=== PATIENT | female | born 1990 | race Caucasian/White ===

== ENCOUNTER 2016-11-26 14:02 | Inpatient (IN) | payer BC, OTHER ==
[~2016-11-26] VITALS: Ht 170.2 cm; Wt 83.9 kg
[2016-11-26 16:00] VITALS: BP 141/79
[2016-11-26] MEDS ORDERED: MIRALAX 17 GM POWD.PACK PO PRN (16:15)
[2016-11-26] MEDS ORDERED: MAGNESIUM HYDROXIDE 30 ML LIQUID UDC PO PRN (16:15)
[2016-11-26] MEDS ORDERED: BUPRENORPHINE HCL 2 MG TAB.SUBL SL PRN (16:15)
[2016-11-26] MEDS ORDERED: MAG HYDROX/AL HYDROX/SIMETH 30 ML LIQUID UDC PO PRN (16:15)
[2016-11-26] MEDS ORDERED: ONDANSETRON ODT 4 MG TAB.RAPDIS SL PRN (16:15)
[2016-11-26] MEDS ORDERED: LOPERAMIDE HCL 2 MG CAPSULE PO PRN (16:15)
[2016-11-26] MEDS ORDERED: diphenhydrAMINE 50 MG CAPSULE PO PRN (16:15)
[2016-11-26] MEDS ORDERED: ONDANSETRON 4 MG/2 ML VIAL IM PRN (16:15)
[2016-11-26] MEDS ORDERED: CLONIDINE HCL 0.1 MG TABLET PO PRN (16:15)
--- NOTE | 2016-11-26 16:30 | NUR ---
ADMISSION NOTE VS: BP: 141/29 HR: 81 O2: 96% RR:16 TEMP: 98.3 PAIN 01/02 HEIGHT: 5'7" WEIGHT: 186 LBS ALLERGIES: SULFA DRUGS, AMOXICILLIN PT IS A 26 YO FEMALE ADMITTED TO [facility] ON 11/26/16 AT 1625. PT IS UNDER CARE OF DR SANFORD FOR HEROIN AND OXYCODONE DEPENDENCE. PT DENIES SI AND HI. PT DENIES BEING HOSPITALIZED IN LAST 30 DAYS. PT DENIES CHEST PAIN AND SOB. UPON ASSESSMENT, SKIN IS INTACT. COWS 8 UPON ADMISSION. AOX4 AND ABLE TO ANSWER QUESTIONS NECESSARY FOR ADMISSION PROCESS. PT IS FULL CODE. VS WNL AND REGULAR DIET. PT DENIES HAVING SEIZURES. PT DENIES PCP. BREATHING IS EVEN AND UNLABORED. SPO2 96%. PT AMBULATES WITH STEADY GAIT. PT STATES BOWEL HABITS ARE NORMAL AND SHE USUALLY GOES EVERY OTHER DAY. PT REPORTS BEING IN AND OUT OF SOBER LIVINGS AND IOPS SINCE OCTOBER 2015. PT CAME FROM IOP. HX OF ANXIETY AND DEPRESSION. PT REFUSES PNA VACCINE. PT SMOKES ABOUT 10 CIGARETTES A DAY. ALL NEEDS HAVE BEEN MET. PT HAS BEEN ORIENTED TO UNIT AND STAFF. ALL SAFETY MEASURES IN PLACE PER HOSPITAL POLICY. BED IN LOWEST POSITION, LOCKED, AND CALL LIGHT WITHIN REACH. WILL CONTINUE TO MONITOR. SUBSTANCE ABUSE: HEROIN:1/2 GRAM PER DAY FOR 3 WEEKS. LAST USED 11/25/16 1/2 GRAM. OXYCODONE: 30 MG PER DAY FOR 1 WEEK. LAST USED 11/23/16 30 MG.
[2016-11-26] MEDS ORDERED: QUET400T PO (17:39)
[2016-11-26] MEDS ORDERED: TRAZ150T75 PO (17:39)
[2016-11-26] MEDS ORDERED: PROP80TA4 PO (17:39)
[2016-11-26] MEDS ORDERED: GABA300S PO (17:39)
[2016-11-26] MEDS ORDERED: VENL150C2 PO (17:39)
[2016-11-26 18:03] LABS: *URINE HCG, QUAL NEGATIVE (NEGATIVE)
[2016-11-26 18:07] LABS: *AMPHETAMINE, URINE NEGATIVE (NEGATIVE); *BARBITURATE, URINE NEGATIVE (NEGATIVE); *CANNABINOID, URINE NEGATIVE (NEGATIVE); *COCCAINE, URINE NEGATIVE (NEGATIVE); *OPIATE, URINE POSITIVE (NEGATIVE); *PHENCYCLIDINE SCREEN,URINE NEGATIVE (NEGATIVE)
[2016-11-26] MEDS: HYDROXYZINE PAMOATE 25 MG CAPSULE PO PRN (18:45)
--- NOTE | 2016-11-26 18:47 | NUR ---
END OF SHIFT PT ADMITTED THIS AFTERNOON FOR HEROIN AND OXYCODONE DEPENDENCE. UDS COLLECTED AND SENT. ENCOURAGED INCREASED FLUIDS. GAVE PT VISTARIL FOR ANXIETY AT 1845. PT CURRENTLY IN ROOM RESTING WITH BED IN LOWEST POSITION AND LOCKED. CALL FELIPE IN REACH. PT DENIES SI AND HI. PT DENIES HX OF SEIZURES. WILL ENDORSE MRSA SWAB TO NIGHT NURSE. WILL PASS REPORT TO NIGHT NURSE.
--- NOTE | 2016-11-26 18:47 | NUR ---
PRN VISTARIL GIVEN FOR ANXIETY. WILL ENDORSE TO NIGHT NURSE TO MONITOR EFFECTIVENESS
[2016-11-26 19:34] LABS: BASOPHILS # (AUTO) 0.1 K/uL (0.0-0.2); BASOPHILS % (AUTO) 0.6 % (0.0-2.0); EOSINOPHILS # (AUTO) 0.1 K/uL (0.0-0.7); EOSINOPHILS % (AUTO) 1.1 % (0.0-7.0); HEMATOCRIT 39.3 % (37.0-47.0); HEMOGLOBIN 13.3 g/dL (12.0-16.0); LYMPHOCYTES # (AUTO) 2.4 K/uL (0.8-4.8); LYMPHOCYTES % (AUTO) 24.8 % (20.5-51.5); MEAN CORPUSCULAR HEMOGLOBIN 27.5 uug (27.0-31.0); MEAN CORPUSCULAR HGB CONC 34 g/dL (32.0-37.0); MEAN CORPUSCULAR VOLUME 81.3 fL (81.0-99.0); MONOCYTES # (AUTO) 0.5 K/uL (0.1-1.30); MONOCYTES % (AUTO) 5.6 % (0.0-11.0); NEUTROPHILS # (AUTO) 6.5 K/uL (1.8-8.9); NEUTROPHILS % (AUTO) 67.9 % (38.5-71.5); PLATELET COUNT (AUTO) 282 K/uL (150-450); RED BLOOD CELL COUNT(AUTO) 4.83 MIL/uL (4.20-5.40); RED CELL DISTRIBUTION WIDTH 13.7 % (11.5-14.5); WHITE BLOOD COUNT (AUTO) 9.6 K/uL (4.0-11.2)
[2016-11-26 19:52] LABS: ALANINE AMINOTRANSFERASE 29 U/L (14-59); ALBUMIN 4.3 g/dL (3.4-5.0); ALKALINE PHOSPHATASE 100 U/L (50-136); ASPARTATE AMINOTRANSFERASE 29 U/L (15-37); BILIRUBIN,TOTAL 0.4 mg/dL (0.2-1.0); CALCIUM 9.6 mg/dL (8.5-10.1); CARBON DIOXIDE 29 mmol/L (21-32); CHLORIDE 103 mmol/L (98-107); CREATININE 0.8 mg/dL (0.6-1.3); GFR 86 mL/min (>60); GLUCOSE 83 mg/dL (74-106); POTASSIUM 3.6 mmol/L (3.5-5.1); SODIUM SERUM 141 mmol/L (136-145); TOTAL PROTEIN, SERUM 8.9 g/dL (6.4-8.2); UREA NITROGEN, BLOOD 8 mg/dL (7-18)
[2016-11-26 19:55] LABS: THYROID STIMULATING HORMONE 0.381 mIU/mL (0.358-3.740)
--- NOTE | 2016-11-26 19:55 | NUR ---
START OF SHIFT Received report from day shift nurse. Pt is in bed watching TV. She is a 26 yo female admitted to the [facility] today for opiate and opioid dependence. She is A&O x4 and ambulatory. Allergies to Sulfa and amoxicillin. She has PMH of anxiety and depression. On admission she reported using heroin 0.5 grams per day for 3 weeks and oxycodone 30mg per day for the past week. She will start a 3 day subutex taper tomorrow. PRN's available for the management of withdrawal symptoms. She reports generalized muscle aches and anxiety. Fall precautions in place. Bed is down with call light in reach.
[2016-11-26 20:00] VITALS: BP 129/87
[2016-11-26 20:08] LABS: HIV-1 p24 ANTIGEN NON REACTIVE (NONREACTIVE); HIV-1/2 ANTIBODY NON REACTIVE (NONREACTIVE)
[2016-11-26 20:11] LABS: ETHANOL < 3 MG/DL (0-0)
[2016-11-26] MEDS ORDERED: QUETIAPINE FUMARATE 200 MG TABLET PO ONE (21:00)
[2016-11-26] MEDS ORDERED: GABAPENTIN 300 MG CAPSULE PO SCH (21:00)
[2016-11-26] MEDS: METHOCARBAMOL 750 MG TABLET PO PRN (21:03)
--- NOTE | 2016-11-26 21:05 | NUR ---
PRN Robaxin administration Pt c/o generalized body aches 01/02. PRN Robaxin administered.
[2016-11-26] MEDS: GABAPENTIN 400 MG CAPSULE PO SCH (21:10)
--- NOTE | 2016-11-26 22:05 | NUR ---
PRN Robaxin reassessment PRN Robaxin effective. Pt is lying comfortably in bed with eyes closed. Respirations even and unlabored. Bed is down with call light in reach.
--- NOTE | 2016-11-27 | NUR ---
0000 Vitals and COWS deferred Pt refused to be woken for 0000 Vitals. Respirations even and unlabored. Bed is down with call light in reach.
[2016-11-27] MEDS ORDERED: 3 DAY TAPER BUPRENORPHINE -SERENITY PROTOCOL SL PRN (03:00)
--- NOTE | 2016-11-27 04:00 | NUR ---
0400 Vitals and COWS deferred Pt refused to be woken for 0400 Vitals. Respirations even and unlabored. Bed is down with call light in reach.
--- NOTE | 2016-11-27 07:19 | NUR ---
END OF SHIFT Report provided to day shift nurse. Pt is lying in bed resting. She is a 26 yo female admitted to [facility] on 11/26 for opiate and opioid dependence. She is A&O x4 and ambulatory. Allergies to Sulfa and amoxicillin. She hasa PMH of anxiety and depression. On admission she reported using heroin 0.5 grams per day for 3 weeks and oxycodone 30mg per day for the past week. She is scheduled to start a 3 day subutex taper today. PRN Robaxin administered for muscle aches. Last COWS was 3. She drank 888mL and slept for 7 hours. Fall precautions in place. Bed is down with call light in reach.
--- NOTE | 2016-11-27 07:30 | NUR ---
Start of shift note; Received report from night nurse. Patient is a 26 y/o female admitted on 11/26/16 for Opiate dependence. Patient reported history6 of anxiety, depression. Patient was placed on a 3 day Subutex taper to start today. Patient is full code status, regular diet, noted to be allergic to Sulfa and amoxicillin. All safety measures secured. Will continue to monitor patient.
[2016-11-27 08:00] VITALS: BP 128/89
[2016-11-27] MEDS: GABAPENTIN 400 MG CAPSULE PO SCH ×3 (08:32→20:54)
[2016-11-27] MEDS: DOCUSATE SODIUM 250 MG CAPSULE PO SCH (08:32)
[2016-11-27] MEDS: BUPRENORPHINE HCL 2 MG TAB.SUBL SL SCH ×2 (08:32→20:53)
[2016-11-27] MEDS: MULTIVITAMINS,THERAPEUTIC TABLET PO SCH (08:32)
[2016-11-27] MEDS: PROPRANOLOL HCL 40 MG TABLET PO SCH ×2 (08:33→20:55)
[2016-11-27] MEDS ORDERED: TUBERCULIN,PURIF.PROT.DERIV. 5 TU/0.1 ML TEST ID ONE (09:00)
[2016-11-27] MEDS ORDERED: PROPRANOLOL LA 80 MG CAP.SA.24H PO SCH ×2 (09:00)
[2016-11-27] MEDS: VENLAFAXINE XR 150 MG CAP.SR.24H PO SCH (10:00)
--- NOTE | 2016-11-27 11:09 | NUR ---
PRN medication; Patient's BP noted to be 144/102, PRN Clonidine 0.1mg PO given as per MD order.Will continue to monitor patient.
[2016-11-27 12:00] VITALS: BP 100/60
[2016-11-27] MEDS: CLONIDINE HCL 0.1 MG TABLET PO SCH ×3 (12:20→20:54)
--- NOTE | 2016-11-27 12:21 | NUR ---
Re-assessment; PRN medication is effective, BP of 128/86, patient is calm and comfortable. Scheduled Clonidine held d/t patient just received PRN dose. Will continue to monitor patient.
[2016-11-27] MEDS: HYDROXYZINE PAMOATE 25 MG CAPSULE PO PRN (14:16)
--- NOTE | 2016-11-27 14:16 | NUR ---
PRN medication; Patient appeared to be anxious, pacing back and forth in the room. PRN Vistaril 50mg PO given for anxiety. Will continue to monitor patient.
--- NOTE | 2016-11-27 15:20 | NUR ---
Re-assessment; Patient is calm and comfortable at this time. Will continue to monitor patient.
[2016-11-27 16:00] VITALS: BP 94/62
--- NOTE | 2016-11-27 18:17 | NUR ---
End of shift note; Patient is AOX4. Patient is a 26 y/o female admitted on 11/26/16 for Opiate dependence. Patient reported history6 of anxiety, depression. Patient was placed on a 3 day Subutex taper to start today. Patient is full code status, regular diet, noted to be allergic to Sulfa and amoxicillin. Patient remained compliant with treatment plan. Medications were effective in reducing withdrawal symptoms. All safety measures secured. Met all needs.
--- NOTE | 2016-11-27 18:47 | NUR ---
START OF SHIFT Patient endorsed by outgoing day shift nurse. Report received. Patient is a 26 y/o female admitted to [facility] on 11/26/2016 for Opioid Dependence, placed on 3 day Subutex taper started on 11/27/2016. Patient remained compliant with therapeutic plan. Patient reported Allergies to Sulfa and Amoxicillin. Regular Diet; Full code; Fall Precautions. Patient denied History of Seizures. Past Medical History: Anxiety, Depression, Tobacco use; Substance use. Substance use History: Heroin " 1/2 gram during 3 weeks. Last use 1/2 gram on 11/25/2016". Oxycodone "30 mg 1 week. Last use 30 mg on 11/23/2016". Recent Hospitalization/Treatment was in the "[facility]" "3 weeks ago". Pt was doing" IOP and relapsed @ the [place]". MRSA swab of nares collected, and sent to Lab. Upon assessment CIWA 7; COWS 7. Patient presents with mild anxiety, reports chills/flashing, mild diffuse discomfort, stomach cramps, tremors that can felt, no observe; obviously irritable/anxious. VS WNL. Breathing is even and unlabored. Patient denied SOB and chest pain. Lungs are clear bilaterally. Bowel Sounds is active in all x4 quadrants. Abdomen is soft and non-distended. Last BM's "today, 11/27/16 at 17:00". Patient remained compliant with medication, diet regime, and treatment plan. Safety measures on the place by hospital protocol: Call light within reach, bed in the lowest position and locked, bed rails up x2. Will continue to monitor.
[2016-11-27 20:00] VITALS: BP 114/68
[2016-11-27] MEDS: QUETIAPINE FUMARATE 200 MG TABLET PO SCH (20:53)
[2016-11-28] VITALS: BP 118/68
--- NOTE | 2016-11-28 04:00 | NUR ---
VS REFUSED AND CIWA/COWS DEFERRED Patient refused to be woken up for 04:00 VS. CIWA/COWS deferred d/t patient sleeping to assess while patient is awake. Safety measures on place by hospital policy: Call light within reach; Bed in lowest position and locked; side rails up x2. Will continue to monitor.
--- NOTE | 2016-11-28 07:02 | NUR ---
END OF SHIFT Patient endorsed to day shift nurse. Report given. Patient is a 26 y/o female admitted to [facility] on 11/26/2016 for Opioid Dependence, placed on 3 day Subutex taper started on 11/27/2016. Patient remained compliant with therapeutic plan. Patient reported Allergies to Sulfa and Amoxicillin. Regular Diet; Full code; Fall Precautions. Patient denied History of Seizures. Past Medical History: Anxiety, Depression, Tobacco use; Substance use. Substance use History: Heroin " 1/2 gram during 3 weeks. Last use 1/2 gram on 11/25/2016". Oxycodone "30 mg 1 week. Last use 30 mg on 11/23/2016". Recent Hospitalization/Treatment was in the "[facility]" "3 weeks ago". Pt was doing" IOP and relapsed @ the [facility]". MRSA swab of nares collected, and sent to Lab. Upon assessment CIWA decreased from 7 to 4; COWS decreased from 7 to 5. Patient presenting with mild anxiety, reports chills/flashing, mild diffuse discomfort, stomach cramps, tremors that can felt, no observe; obviously irritable/anxious. VS WNL. Patient remained compliant with medication, diet regime, and treatment plan. Patient slept 8 hours; Intake 710 ml; Voided x 1. Safety measures on the place by hospital protocol: Call light within reach, bed in the lowest position and locked, bed rails up x2. Will continue to monitor.
--- NOTE | 2016-11-28 07:54 | NUR ---
Start of shift note; Received report from night nurse. Patient is resting with eyes closed, respirations even and unlabored. Patient is a 26 y/o female admitted on 11/26/16 for Opiate dependence. Patient reported history of anxiety, depression. Patient was placed on a 3 day Subutex taper to start today. Patient is full code status, regular diet, noted to be allergic to Sulfa and amoxicillin. Patient's last COWS is 5. All safety measures secured. Will continue to monitor patient.
[2016-11-28 08:00] VITALS: BP 108/62
[2016-11-28] MEDS: GABAPENTIN 400 MG CAPSULE PO SCH ×3 (08:58→20:35)
[2016-11-28] MEDS: DOCUSATE SODIUM 250 MG CAPSULE PO SCH (08:58)
[2016-11-28] MEDS: MULTIVITAMINS,THERAPEUTIC TABLET PO SCH (08:58)
[2016-11-28] MEDS: VENLAFAXINE XR 150 MG CAP.SR.24H PO SCH (08:59)
[2016-11-28] MEDS: PROPRANOLOL HCL 40 MG TABLET PO SCH ×2 (08:59→20:36)
[2016-11-28] MEDS: BUPRENORPHINE HCL 2 MG TAB.SUBL SL SCH ×3 (08:59→20:35)
[2016-11-28] MEDS: CLONIDINE HCL 0.1 MG TABLET PO SCH ×4 (09:04→20:36)
[2016-11-28] MEDS: METHOCARBAMOL 750 MG TABLET PO PRN ×2 (09:28→22:11)
[2016-11-28] MEDS: HYDROXYZINE PAMOATE 25 MG CAPSULE PO PRN ×3 (09:59→22:12)
--- NOTE | 2016-11-28 10:00 | NUR ---
PRN medications; Patient is complaining of Body/muscle aches and anxiety m/b patient pacing back and forth in the room. PRN Robaxin 750mg PO given at 0928 to patient for muscle aches and PRN Vistaril 50mg PO given at 0959 for anxiety. Will continue to monitor patient.
--- NOTE | 2016-11-28 11:00 | NUR ---
Re-assessment; Patient is AOx4. Patient is calm and comfortable no s/s of anxiety. Patient also denies muscle aches at this time. PRN medications were effective.
[2016-11-28 11:18] LABS: HCV AB <0.1 s/co ratio (0.0-0.9); HEPATITIS B CORE AB, IgM Negative (Negative); HEPATITIS B SURFACE AG Negative (Negative)
[2016-11-28 12:00] VITALS: BP 96/88
--- NOTE | 2016-11-28 12:34 | NUR ---
New orders; Abscess on patient right hand/wrist area noted. MD ordered blood culture to be done, start IV and give Cleocin IV 900mg in IV dextrose 5% 100ml to run 220ml/hr Q8hr. Procedures explained to patient, verbalized understanding.
[2016-11-28] MEDS: CLINDAMYCIN PHOSPHATE IV 900 MG in IV DEXTROSE 5% 100 ML IV SCH ×2 (13:48→22:08)
--- NOTE | 2016-11-28 13:48 | NUR ---
IV insertion; IV inserted on patient's left hand 22G , site is intact no s/s of infiltration, patient denies any pain on site. Will continue to monitor patient. Dr. Nino ordered procedure for I&D today, patient consented procedure. Will clsoely monitor patient.
[2016-11-28] MEDS ORDERED: SILVER NITRATE APPLICATOR STICK EACH TP ONE (15:30)
[2016-11-28] MEDS ORDERED: LIDOCAINE HCL 1% 20 ML VIAL IJ ONE (15:30)
[2016-11-28] MEDS: IBUPROFEN 400 MG TABLET PO PRN ×2 (15:36→21:37)
--- NOTE | 2016-11-28 15:49 | NUR ---
PRN medication; PRN Ibuprofen given for pain on right hand rated 5/10. Will continue to monitor patient.
--- NOTE | 2016-11-28 15:50 | NUR ---
Endorsement given; Report given to covering nurse. All safety measures secured.
--- NOTE | 2016-11-28 15:51 | NUR ---
Endorsement received from Margarito NORIEGA
[2016-11-28 16:00] VITALS: BP 102/65
[2016-11-28] MEDS: ACETAMINOPHEN 325 MG TABLET PO PRN (17:35)
--- NOTE | 2016-11-28 17:40 | NUR ---
PRN Vistaril and Tylenol Pt reports 6/10 at the site of the excision for abscess drainage. Pt also reports 5/10 anxiety.
--- NOTE | 2016-11-28 18:10 | NUR ---
PRN Re-assessment Pt rates anxiety 2/10 at this time and pain 1/10. Medication was effective.
[2016-11-28 19:00] VITALS: BP 120/74
[2016-11-28 20:00] VITALS: BP 120/74
--- NOTE | 2016-11-28 20:14 | NUR ---
START OF SHIFT Patient endorsed by day shift nurse. Report received. Patient is a 26 y/o female admitted to [facility] on 11/26/2016 for Opioid Dependence, placed on 3 day Subutex taper started on 11/27/2016Patient still tolerated to taper well. Patient remained compliant with therapeutic plan. Medications were effective in reducing withdrawal symptoms. Patient reported Allergies to Sulfa and Amoxicillin. Regular Diet; Full code; Fall Precautions. Patient denied History of Seizures. Patient is CIWA 6; COWS 5. Patient presenting with mild anxiety, reports chills/flashing, mild diffuse discomfort, stomach cramps, tremors that can felt, no observe; obviously irritable/anxious. VS WNL. Breathing is even and unlabored. Patient denied SOB and chest pain. Lungs are clear bilaterally. Bowel Sounds is active in all x4 quadrants. Abdomen is soft and non-distended. Skin is warm, and moist by touch. Patient has abscess drained from right wrist. Wound care was done, Patient has IV Saline Lock:22G was inserted at 13:48 by day shift nurse. IV Site intact. Dressing is dry and clean. Safety measures on the place by hospital protocol: Call light within reach, bed in the lowest position and locked, bed rails up x2. Will continue to monitor.
--- NOTE | 2016-11-28 20:14 | NUR ---
End of Shift Endorsement given to nightshift nurse. Pt is a 26 y/o female admitted for heroin and oxycodone dependence. Pt has been placed on a 3 day Subutex taper. Pt is tolerating the taper well AEB COWS 3. Pt had the abscess drained from left wrist. Wound care was performed. Pt has received PRN Vistaril x2, Tylenol, Motrin, Robaxin. VS WNL, Full Code. . Pt is alert and oriented x4, responsive to name and touch. Intake: 2590ml, Void x3, BM x0. Remains compliant with medication and diet regimen. All needs have been met, All safety measures in place per hospital policy. Bed in lowest position, side rails up x2, call-light within reach. Will continue to monitor
[2016-11-28] MEDS: QUETIAPINE FUMARATE 200 MG TABLET PO SCH (20:35)
--- NOTE | 2016-11-28 21:37 | NUR ---
Motrin PRN: Pt c/o pain r/t I+D procedure earlier in the day. Pt requested pain medication. Pt stated she is having pain level 6/10. Motrin PRN given as ordered. Will continue to monitor.
--- NOTE | 2016-11-28 22:00 | NUR ---
PRN Motrin Reassessment: Pt stated pain level reduced to 4/10. Motrin PRN effective.
[2016-11-29 01:44] VITALS: BP 92/50
[2016-11-29 04:00] VITALS: BP 98/56
[2016-11-29] MEDS: HYDROXYZINE PAMOATE 25 MG CAPSULE PO PRN ×3 (05:14→20:42)
[2016-11-29] MEDS: ACETAMINOPHEN 325 MG TABLET PO PRN (05:14)
--- NOTE | 2016-11-29 05:14 | NUR ---
PRN TYLENOL PO AND PRN VISTARIL PO ADMINISTRATION Patient c/o right wrist severe pain 8/10 and increased anxiety. Patient's assessed. VS WNL. PRN Tylenol PO and PRN Vistaril PO discussed with patient. Patient educated for actions, adverse reactions, and side effects of Tylenol and Vistaril. Patient returned his knowledge back by verbalizing understanding. PRN Benadryl was administrated as ordered with full glass of water. Patient tolerated well. All needs met. Safety measures in the place by hospital policy: call light within reach, bed in the lowest position and locked, bed rails up x2. Will re-evaluating patient in 1 hour. Addendum: 11/29/16 at 0619 by STEVE HAYES RN PRN Tylenol PO and PRN Vistaril PO administrated as ordered at 05:14.
[2016-11-29] MEDS: CLINDAMYCIN PHOSPHATE IV 900 MG in IV DEXTROSE 5% 100 ML IV SCH (06:01)
[2016-11-29] MEDS: IBUPROFEN 400 MG TABLET PO PRN ×2 (06:09→10:19)
--- NOTE | 2016-11-29 06:09 | NUR ---
PRN MOTRIN PO ADMINISTRATION Patient c/o right wrist severe pain 05/05. Patient's assessed. VS WNL. PRN Motrin PO discussed with patient. Patient educated for actions, adverse reactions, and side effects of Motrin. Patient returned his knowledge back by verbalizing understanding. PRN Motrin PO was administrated as ordered with full glass of water. Patient tolerated well. All needs met. Safety measures in the place by hospital policy: call light within reach, bed in the lowest position and locked, bed rails up x2. Will re-evaluating patient in 1 hour.
--- NOTE | 2016-11-29 06:14 | NUR ---
PRN REASSESSMENT Pt is asleep in bed with no signs of discomfort/distress or anxiety noted. RR: 16: Breathing is unlabored and even. PRN TYLENOL, PRN VISTARIL PO was effective. Safety measures on the place by hospital protocol: Call light within reach, bed in the lowest position and locked, bed rails up x2. Will continue to monitor.
--- NOTE | 2016-11-29 07:05 | NUR ---
END OF SHIFT Patient endorsed to day shift nurse. Report given. Patient is a 26 y/o female admitted to [facility] on 11/26/2016 for Opioid Dependence, placed on 3 day Subutex taper started on 11/27/2016. Patient remained compliant with therapeutic plan. Patient reported Allergies to Sulfa and Amoxicillin. Regular Diet; Full code; Fall Precautions. Patient denied History of Seizures. Upon assessment at 0600 CIWA 7 ; COWS 7 . Patient presenting with mild anxiety, reports chills/flashing, mild diffuse discomfort, stomach cramps, tremors that can felt, no observe; obviously irritable/anxious. VS WNL. Patient has abscess drained from right wrist. Wound care was done, Patient has IV Saline Lock:22G was inserted at 13:48 by day shift nurse. IV Site intact. Dressing is dry and clean. PRN Motrin PO, PRN Tylenol PO administrated for severe pain on the site of abscess on the Right arm. Patient remained compliant with medication, diet regime, and treatment plan. Patient slept 7,5hours; Intake1,207 ml; Voided x 3. Safety measures on the place by hospital protocol: Call light within reach, bed in the lowest position and locked, bed rails up x2. Will continue to monitor.
--- NOTE | 2016-11-29 07:09 | NUR ---
PRN REASSESSMENT Pt is asleep in bed with no signs of discomfort/distress or anxiety noted. RR: 16: Breathing is unlabored and even. PRN Motrin PO was effective. Safety measures on the place by hospital protocol: Call light within reach, bed in the lowest position and locked, bed rails up x2. Will continue to monitor.
[2016-11-29 08:00] VITALS: BP 106/61
--- NOTE | 2016-11-29 08:30 | NUR ---
START OF SHIFT Received pt this am awake in bed aox4. Pt slept 7.5 hours last night, but states she still feels fatigued. Pt given PRN Tylenol and Motrin for pain by curtain mender and pt states it did not give her any relief. Pt c/o pain in her right hand 04/04. Pt also given PRN Benadryl and Vistaril by curtain mender last night and pt states it was effective and she was able to sleep well. Pt states she is experiencing anxiety, sweats, and body aches this morning. Cows 5 at 0800. AM meds administered. Pt has left hand [address] No swelling or redness noted to IV site. Pt currently eating breakfast. Encouraged group activity today and increase in fluids to assist in facilitating detox. Will continue to monitor and provide safe and supportive environment.
[2016-11-29] MEDS: DOCUSATE SODIUM 250 MG CAPSULE PO SCH (08:48)
[2016-11-29] MEDS: GABAPENTIN 400 MG CAPSULE PO SCH ×3 (08:48→20:42)
[2016-11-29] MEDS: CLONIDINE HCL 0.1 MG TABLET PO SCH ×4 (08:48→20:43)
[2016-11-29] MEDS: PROPRANOLOL HCL 40 MG TABLET PO SCH ×2 (08:49→20:43)
[2016-11-29] MEDS: VENLAFAXINE XR 150 MG CAP.SR.24H PO SCH (08:49)
[2016-11-29] MEDS: MULTIVITAMINS,THERAPEUTIC TABLET PO SCH (08:49)
[2016-11-29] MEDS ORDERED: BUPRENORPHINE HCL 2 MG TAB.SUBL SL SCH (09:00)
--- NOTE | 2016-11-29 10:21 | NUR ---
PRN MOTRIN GIVEN FOR RIGHT WRIST PAIN 04/04. WILL REASSESS
--- NOTE | 2016-11-29 10:54 | NUR ---
iv site dc'd per doctor order. iv intact. no redness or swelling noted. bandaid applied.
--- NOTE | 2016-11-29 11:09 | NUR ---
PRN REASSESSMENT pt states the Motrin did not relieve pain at all. pt states her pain is still a 8/10.
[2016-11-29] MEDS ORDERED: ACETAMINOPHEN ES 500 MG TABLET PO PRN (11:15)
[2016-11-29 12:00] VITALS: BP 105/68
[2016-11-29] MEDS: KETOROLAC TROMETHAMINE 30 MG INJ IM PRN ×2 (12:52→20:44)
--- NOTE | 2016-11-29 13:00 | NUR ---
PRN ADMINISTRATION PRN Toradol and PRN Vistaril given. Pt states pain is 8/10 in right hand. Pt c/o feeling anxious. VS WNL. Will reassess.
--- NOTE | 2016-11-29 13:52 | NUR ---
PRN REASSESSMENT pt states Toradol was effective and decreased her pain from 8/10 to 0/10 pt states Vistaril was effective and decreased her anxiety. patient currently resting in bed. bed locked and in lowest position call alba in reach.
[2016-11-29] MEDS: CLINDAMYCIN HCL 300 MG CAPSULE PO SCH ×2 (14:18→22:30)
[2016-11-29] MEDS ORDERED: PROP40TA7 PO (14:47)
[2016-11-29] MEDS ORDERED: METH-33 PO (14:47)
[2016-11-29] MEDS ORDERED: Gabapentin PO (14:47)
[2016-11-29] MEDS ORDERED: CLON0.1T14 PO (14:47)
[2016-11-29] MEDS ORDERED: HYDR-3895 PO (14:47)
[2016-11-29] MEDS ORDERED: Clindamycin Hcl PO (14:47)
--- NOTE | 2016-11-29 15:43 | NUR ---
WOUND CARE COMPLETE ON PATIENT RIGHT HAND PATIENT TOLERATED WELL.
[2016-11-29 16:00] VITALS: BP 120/86
[2016-11-29 16:05] LABS: *AMPHETAMINE, URINE NEGATIVE (NEGATIVE); *BARBITURATE, URINE NEGATIVE (NEGATIVE); *CANNABINOID, URINE NEGATIVE (NEGATIVE); *COCCAINE, URINE NEGATIVE (NEGATIVE); *OPIATE, URINE POSITIVE (NEGATIVE); *PHENCYCLIDINE SCREEN,URINE NEGATIVE (NEGATIVE)
--- NOTE | 2016-11-29 18:47 | NUR ---
END OF SHIFT Patient completed Subutex taper. Patient given PRN Motrin, Toradol, and Vistaril this shift. Patient states the Vistaril was effective in decreasing her anxiety and the Toradol decreased her pain from 8/10 to 0/10. Motrin not effective per patient. TB test read today and was negative. Wound care completed on patients right hand abscess. IV was dc'd today per Dr order. Last COWS 1. Patient c/o mild anxiety with no other s/s of w/d. Discharge planning in progress for tomorrow. Vs remain WNL. No distress noted. All safety measures in place. Will pass report to oncoming nurse.
--- NOTE | 2016-11-29 19:55 | NUR ---
Start of Shift Note: Report received from day shift nurse. Pt is a 26 yo female admitted on 11/26/16 for medically-supervised withdrawal from opiates. Pt reports 0.5gm heroin daily for 3 weeks and 30mg oxycodone daily for 1 week. Pt has completed a 3-day Subutex taper and is to discharge tomorrow. Last day shift COWS=1. Pt is on a regular diet. Pt reports allergy to sulfa and amoxicillin. I&D on right wrist, wound care ordered. Pt reports med hx: depression, anxiety. Pt is currently in group. Will continue to monitor.
[2016-11-29 20:00] VITALS: BP 139/89
[2016-11-29] MEDS: QUETIAPINE FUMARATE 200 MG TABLET PO SCH (20:42)
--- NOTE | 2016-11-29 20:44 | NUR ---
PRN Toradol and PRN Vistaril: Pt c/o severe pain in right wrist. Pt rates pain 7/10. Pt reports that only Toradol is effective. Administered PRN Toradol IM as ordered. Pt c/o anxiety. Administered PRN Vistaril as ordered. Will continue to monitor.
--- NOTE | 2016-11-29 21:45 | NUR ---
Reassessment: Pt is in bed with eyes closed. Respirations are even and unlabored. No s/s of acute distress noted. PRN Toradol and PRN Vistaril effective. Will continue to monitor.
[2016-11-30] VITALS: BP 104/50
[2016-11-30 04:00] VITALS: BP 103/59
[2016-11-30] MEDS: CLINDAMYCIN HCL 300 MG CAPSULE PO SCH (06:50)
--- NOTE | 2016-11-30 07:03 | NUR ---
End of Shift Note: Pt is a 26 yo female admitted to [facility] on 11/26/16 for medically-supervised withdrawal from opiates. Pt reports using 0.5gm heroin daily for 3 weeks and 30mg oxycodone daily for 1 week. Pt has completed a 3-day Subutex taper and is to discharge today. Scheduled medication regime managed mild s/s of withdrawal, in addition to PRN Vistaril for anxiety. Last COWS was 1 at 04:00. PRN Toradol was given for pain in wrist s/p I&D. V/S stable throughout shift. Total fluid intake this shift: 355 ml; output: urine x 1 and BM x 0. Pt currently in bed and slept 6 hours this shift. Pt endorsed to day shift nurse.
--- NOTE | 2016-11-30 07:50 | NUR ---
Start of shift note; Received report from night nurse. Patient is resting with eyes closed, respirations even and unlabored. Patient is a 26 y/o female admitted on 11/26/16 for Opiate dependence. Patient reported history of anxiety, depression. Patient was placed on a 3 day Subutex taper, completed treatment without any adverse reactions. Patient is full code status, regular diet, noted to be allergic to Sulfa and amoxicillin. Patient is scheduled for discharge to be transferred to the [place], patient is medically cleared for discharge. All safety measures secured. Will continue to monitor patient.
[2016-11-30 08:00] VITALS: BP 102/67
[2016-11-30] MEDS: MULTIVITAMINS,THERAPEUTIC TABLET PO SCH (08:22)
[2016-11-30] MEDS: GABAPENTIN 400 MG CAPSULE PO SCH (08:22)
[2016-11-30 08:23] VITALS: BP 102/67
[2016-11-30] MEDS: VENLAFAXINE XR 150 MG CAP.SR.24H PO SCH (08:23)
[2016-11-30] MEDS: DOCUSATE SODIUM 250 MG CAPSULE PO SCH (08:23)
[2016-11-30] MEDS: CLONIDINE HCL 0.1 MG TABLET PO SCH (08:23)
[2016-11-30] MEDS: PROPRANOLOL HCL 40 MG TABLET PO SCH (08:23)
--- NOTE | 2016-11-30 10:15 | NUR ---
Discharge note; Patient is AOX4. All patient's belongings, valuables and prescriptions given to patient. Patient was educated on how to do wound care on her right wrist d/t recent I&D procedure and was educated regarding the importance of keeping site clean and dry to prevent complications, patient verbalized understanding. Patient was able to demonstrate proper wound care, site kept clean and dry. Patient left the hospital at exactly 1005 on 11/30/16 , patient left in a stable condition. Met all needs.
[2016-12-04 16:15] LABS: *CODEINE Negative (Cutoff=300); *HYDROMORPHONE Negative (Cutoff=300); *OPIATES Positive ng/mL (Cutoff=300)
== END 2016-11-30 10:05 | disposition other institution (70) | DRG 982 ==
LOC: SRC 15:44
PROVIDERS: ADMIT Internal Medicine; ATTEND Internal Medicine
PROC: HZ2ZZZZ Detoxification Services for Substance Abuse Treatment (ICD-10-PCS; principal; 2016-11-26)
PROC: HZ31ZZZ Individual Counseling for Substance Abuse Treatment, Behavioral (ICD-10-PCS; 2016-11-28)
PROC: 0JBD0ZZ Excision of Right Upper Arm Subcutaneous Tissue and Fascia, Open Approach (ICD-10-PCS; 2016-11-28)
DX: F11.23 Opioid dependence with withdrawal (principal); F33.2 Major depressive disorder, recurrent severe without psychotic features; L03.113 Cellulitis of right upper limb; L02.413 Cutaneous abscess of right upper limb; Z81.8 Family history of other mental and behavioral disorders; F41.9 Anxiety disorder, unspecified; S61.531S Puncture wound without foreign body of right wrist, sequela; W26.8XXS Contact with other sharp object(s), not elsewhere classified, sequela; Z98.890 Other specified postprocedural states; Z68.29 Body mass index [BMI] 29.0-29.9, adult; Z88.2 Allergy status to sulfonamides; F17.210 Nicotine dependence, cigarettes, uncomplicated; E66.9 Obesity, unspecified
CPT/HCPCS: 36415; 80307; 80361; 83735; 84443; 84703; 85025; 86592; 86705; 86803; 87040; 87340; 87806; A4663; G6040-TC; J1885; J3490; J7060; J8499